=== PATIENT | male | born 1955 | race Caucasian/White ===

== ENCOUNTER 2017-06-13 11:26 | Observation (INO) | payer SELFPAY ==
[2017-06-13] VITALS (13 sets, daily range): BP systolic 155–218; BP diastolic 67–120; PULSE 60–100; RESP 17–20; TEMP 97.7–98.9; O2SAT 92–99
[~2017-06-13] VITALS: Ht 167.6 cm; Wt 80.0 kg
[~2017-06-13 11:26] MED LIST: ALBU1AER INH; ZITH250T PO
--- NOTE | 2017-06-13 11:42 | PD ---
HPI Chief Complaint: Respiratory Symptoms Time Seen by Provider: 11:34 Travel History International Travel<30 days: No Contact w/Intl Traveler<30days: No Traveled to known affect area: No History of Present Illness HPI The patient is a 62 year-old male who presents to the emergency department for shortness of breath and cough. The patient notes a history of bronchitis over the last 2 months, complains of shortness of breath, productive sputum producing yellow sputum, and generalized malaise. The patient denies any history of tobacco use or COPD. He denies ever been diagnosed with COPD and states he does not have an albuterol nebulizer or inhaler at home. Shortness of breath has been ongoing for 1 month, progressing, worse with exertion, and associated with wheezing. He denies any fever, chills, or sweats. He does have a history of hypertension, however, states he has not taken medications for hypertension in several years. He denies any recent travel, hospitalizations, surgeries, or history of pulmonary embolism/DVT. He denies any history congestive heart failure. Symptoms are moderate, possibly exacerbated by recent illnesses, and there are no current alleviating factors. PFSH Past Medical History Arthritis: No Asthma: No Autoimmune Disease: No Blood Disorders: No Anxiety: No Depression: Yes Heart Rhythm Problems: No Cancer: Yes (SKIN) Cardiovascular Problems: Yes High Cholesterol: Yes Chemotherapy: No Chest Pain: Yes Congestive Heart Failure: No COPD: No Cerebrovascular Accident: No Diabetes: Yes Diminished Hearing: No Endocrine: Yes Gastrointestinal Disorders: Yes GERD: Yes Glaucoma: No Genitourinary: No Headaches: No Hepatitis: No Hiatal Hernia: No Hypertension: Yes Kidney Stones: No Musculoskeletal: No Neurologic: No Psychiatric: Yes Respiratory: Yes Myocardial Infarction: No Radiation Therapy: No Renal Failure: No Seizures: No Sickle Cell Disease: No Sleep Apnea: No Thyroid Disease: No Ulcer: No Past Surgical History Abdominal Surgery: No AICD: No Body Medical Devices: N/A Cardiac Surgery: No Ear Surgery: No Endocrine Surgery: No Eye Surgery: No Genitourinary Surgery: No Gynecologic Surgery: No Oral Surgery: No Pacemaker: No Thoracic Surgery: No Other Surgery: Yes (BROKEN NOSE SURGERY X2) Social History Alcohol Use: Yes (3-4 TIMES PER WEEK (5-6 BEERS)) Tobacco Use: No Substance Use: No Allergies-Medications (Allergen,Severity, Reaction): Coded Allergies: No Known Allergies (Verified , 08/17/15) Reported Meds & Prescriptions Reported Meds & Active Scripts Active Proair Hfa (Albuterol Sulfate) 8.5 Gm Aero 2 Puff INH Q4-6H PRN * SHAKE WELL BEFORE USE * Review of Systems Except as stated in HPI: all other systems reviewed are Neg General / Constitutional: No: Fever HENT: No: Lightheadedness Cardiovascular: Positive: Dyspnea on exertion, No: Chest Pain or Discomfort Respiratory: Positive: Cough, Shortness of Breath, Wheezing Gastrointestinal: No: Nausea, Vomiting, Abdominal Pain Musculoskeletal: No: Edema Neurologic: No: Dizziness Physical Exam Narrative GENERAL: Awake, alert, pleasant 62-year-old male who appears his stated age and appears in mild respiratory distress. SKIN: Focused skin assessment warm/dry. HEAD: Atraumatic. Normocephalic. EYES: Pupils equal and round. No scleral icterus. No injection or drainage. ENT: No nasal bleeding or discharge. Mucous membranes pink and moist. NECK: Trachea midline. No JVD. CARDIOVASCULAR: Regular, tachycardic with a rate of 100. RESPIRATORY: Tachypnea with a respiratory rate of 22. Diminished breath sounds in the bases with a few scattered wheezes. GASTROINTESTINAL: Abdomen soft, non-tender, nondistended. MUSCULOSKELETAL: No obvious deformities. No clubbing. No cyanosis. No edema. Calves are soft bilaterally. NEUROLOGICAL: Awake and alert. No obvious cranial nerve deficits. Motor grossly within normal limits. Normal speech. PSYCHIATRIC: Appropriate mood and affect; insight and judgment normal. Data Data Last Documented VS Vital Signs Date Time Temp Pulse Resp B/P (MAP) Pulse Ox O2 Delivery O2 Flow Rate FiO2 06/13/17 12:27 87 18 188/90 (122) 97 Nasal Cannula 2.00 06/13/17 11:28 97.9 Orders Orders Complete Blood Count With Diff (06/13/17 11:37) Comprehensive Metabolic Panel (06/13/17 11:37) B-Type Natriuretic Peptide (06/13/17 11:37) Act Partial Throm Time (Ptt) (06/13/17 11:37) Prothrombin Time / Inr (Pt) (06/13/17 11:37) Magnesium (Mg) (06/13/17 11:37) Ckmb (Isoenzyme) Profile (06/13/17 11:37) Troponin I (06/13/17 11:37) Influenzae A/B Antigen (06/13/17 11:37) Iv Access Insert/Monitor (06/13/17 11:37) Electrocardiogram (06/13/17 11:37) Ecg Monitoring (06/13/17 11:37) Oximetry (06/13/17 11:37) Oxygen Administration (06/13/17 11:37) Chest, Single Ap (06/13/17 11:37) Sodium Chloride 0.9% Flush (Ns Flush) (06/13/17 11:45) Methylprednisolone So Succ Inj (Solumedr (06/13/17 11:45) Albuterol-Ipratropium Neb (Duoneb Neb) (06/13/17 11:45) Amlodipine (Norvasc) (06/13/17 11:45) Aspirin Chew (Aspirin Chew) (06/13/17 12:30) Furosemide Inj (Lasix Inj) (06/13/17 12:30) Enalaprilat Inj (Vasotec Inj) (06/13/17 12:45) (Nf) Albuterol Sulfate (Proair Hfa) (06/13/17 13:00) Labs Laboratory Tests Test 06/13/17 11:45 White Blood Count 4.3 TH/MM3 Red Blood Count 5.39 MIL/MM3 Hemoglobin 14.9 GM/DL Hematocrit 43.8 % Mean Corpuscular Volume 81.2 FL Mean Corpuscular Hemoglobin 27.7 PG Mean Corpuscular Hemoglobin Concent 34.1 % Red Cell Distribution Width 13.1 % Platelet Count 175 TH/MM3 Mean Platelet Volume 8.0 FL Neutrophils (%) (Auto) 74.8 % Lymphocytes (%) (Auto) 12.0 % Monocytes (%) (Auto) 9.3 % Eosinophils (%) (Auto) 3.2 % Basophils (%) (Auto) 0.7 % Neutrophils # (Auto) 3.2 TH/MM3 Lymphocytes # (Auto) 0.5 TH/MM3 Monocytes # (Auto) 0.4 TH/MM3 Eosinophils # (Auto) 0.1 TH/MM3 Basophils # (Auto) 0.0 TH/MM3 CBC Comment DIFF FINAL Differential Comment Prothrombin Time 10.0 SEC Prothromb Time International Ratio 1.0 RATIO Activated Partial Thromboplast Time 25.8 SEC Blood Urea Nitrogen 15 MG/DL Creatinine 0.98 MG/DL Random Glucose 358 MG/DL Total Protein 7.0 GM/DL Albumin 3.7 GM/DL Calcium Level 8.1 MG/DL Magnesium Level 2.3 MG/DL Alkaline Phosphatase 61 U/L Aspartate Amino Transf (AST/SGOT) 20 U/L Alanine Aminotransferase (ALT/SGPT) 31 U/L Total Bilirubin 0.7 MG/DL Sodium Level 137 MEQ/L Potassium Level 4.2 MEQ/L Chloride Level 102 MEQ/L Carbon Dioxide Level 28.9 MEQ/L Anion Gap 6 MEQ/L Estimat Glomerular Filtration Rate 78 ML/MIN Total Creatine Kinase 81 U/L Troponin I 0.02 NG/ML B-Type Natriuretic Peptide 538 PG/ML MDM Medical Decision Making Medical Screen Exam Complete: Yes Emergency Medical Condition: Yes Medical Record Reviewed: Yes Interpretation(s) EKG reveals normal sinus rhythm with a rate 87. Nonspecific T wave changes. Chest x-ray reveals slight CHF Last Impressions Chest X-Ray 06/13/17 1137 Signed Impressions: Service Date/Time: Tuesday, June 13, 2017 12:16 - CONCLUSION: Slight CHF. Laureen Sanchez MD Laboratory Tests Test 06/13/17 11:45 White Blood Count 4.3 TH/MM3 Red Blood Count 5.39 MIL/MM3 Hemoglobin 14.9 GM/DL Hematocrit 43.8 % Mean Corpuscular Volume 81.2 FL Mean Corpuscular Hemoglobin 27.7 PG Mean Corpuscular Hemoglobin Concent 34.1 % Red Cell Distribution Width 13.1 % Platelet Count 175 TH/MM3 Mean Platelet Volume 8.0 FL Neutrophils (%) (Auto) 74.8 % Lymphocytes (%) (Auto) 12.0 % Monocytes (%) (Auto) 9.3 % Eosinophils (%) (Auto) 3.2 % Basophils (%) (Auto) 0.7 % Neutrophils # (Auto) 3.2 TH/MM3 Lymphocytes # (Auto) 0.5 TH/MM3 Monocytes # (Auto) 0.4 TH/MM3 Eosinophils # (Auto) 0.1 TH/MM3 Basophils # (Auto) 0.0 TH/MM3 CBC Comment DIFF FINAL Differential Comment Prothrombin Time 10.0 SEC Prothromb Time International Ratio 1.0 RATIO Activated Partial Thromboplast Time 25.8 SEC Blood Urea Nitrogen 15 MG/DL Creatinine 0.98 MG/DL Random Glucose 358 MG/DL Total Protein 7.0 GM/DL Albumin 3.7 GM/DL Calcium Level 8.1 MG/DL Magnesium Level 2.3 MG/DL Alkaline Phosphatase 61 U/L Aspartate Amino Transf (AST/SGOT) 20 U/L Alanine Aminotransferase (ALT/SGPT) 31 U/L Total Bilirubin 0.7 MG/DL Sodium Level 137 MEQ/L Potassium Level 4.2 MEQ/L Chloride Level 102 MEQ/L Carbon Dioxide Level 28.9 MEQ/L Anion Gap 6 MEQ/L Estimat Glomerular Filtration Rate 78 ML/MIN Total Creatine Kinase 81 U/L Troponin I 0.02 NG/ML B-Type Natriuretic Peptide 538 PG/ML Differential Diagnosis Differential diagnosis includes bronchitis, CVA, pneumonia, pleural effusion, congestive heart failure, current myopathy, pulmonary embolism, acute coronary syndrome. Narrative Course IV was established, labs are drawn and sent, and the patient was placed on cardiac telemetry monitoring and continuous pulse oximetry monitoring. EKG was ordered and interpreted. Chest x-ray was obtained. The patient received Solu- Medrol 125 mg intravenously and DuoNeb's 2. Chest x-ray reveals slight CHF. BNP is greater than 500. The patient denies any history of congestive heart failure, patient does have significantly elevated blood pressure, may be related to hypertensive urgency/emergency versus new onset congestive heart failure. The patient was administered aspirin 162 mg orally and Lasix 40 mg intravenously. The patient appears to have new onset congestive heart failure, will benefit from 23 hour observation, echocardiogram, and starting a regimen of MANNY inhibitor, aspirin, and possibly diabetic medications. The on-call medical team was paged for admission. Physician Communication Physician Communication I discussed the patient with the residents who agreed with [address] Sampson. Diagnosis Primary Impression: New onset of congestive heart failure Additional Impression: Hypertensive urgency Admitting Information Admitting Physician Requests: Admit Condition: Stable Jaden Ibarra MD Jun 13, 2017 11:42
[2017-06-13] MEDS ORDERED: SODIUM CHLORIDE 0.9% FLUSH 10 ML FLUSH IVF PRN (11:45)
[2017-06-13] MEDS ORDERED: methylPREDNISolone SOD SUCC 125 MG/2 ML VIAL IV PUSH ONE (11:45)
[2017-06-13 11:57] LABS: AUTOMATED NEUTROPHIL # 3.2 TH/MM3 (1.8-7.7); BASOPHIL % 0.7 % (0.0-2.0); EOSINOPHIL # 0.1 TH/MM3 (0-0.4); EOSINOPHIL % 3.2 % (0.0-4.0); HEMATOCRIT 43.8 % (39.0-51.0); HEMOGLOBIN 14.9 GM/DL (13.0-17.0); LYMPHOCYTE # 0.5 TH/MM3 (1.0-4.8); MEAN CELL VOLUME 81.2 FL (80.0-100.0); MEAN CORPUSCULAR HEMOGLOBIN 27.7 PG (27.0-34.0); MEAN CORPUSCULAR HGB CONC 34.1 % (32.0-36.0); MONO % 9.3 % (0.0-8.0); MONOCYTE # 0.4 TH/MM3 (0-0.9); NEUT % 74.8 % (16.0-70.0); PLATELET COUNT 175 TH/MM3 (150-450); RED BLOOD COUNT 5.39 MIL/MM3 (4.50-5.90); RED CELL DISTRIBUTION WIDTH 13.1 % (11.6-17.2); WHITE BLOOD COUNT 4.3 TH/MM3 (4.0-11.0)
[2017-06-13] MEDS: RESP: ALBUTEROL 2.5 MG/IPRATROPIUM 0.5 MG NEB (SCH) INH ×2 (12:00→12:04)
--- NOTE | 2017-06-13 12:26 | RADRPT ---
EXAM DATE/TIME: 06/13/2017 12:16 [facility] COMPARISON: No previous studies available for comparison. INDICATIONS : Short of Breath MEDICAL HISTORY : None. SURGICAL HISTORY : None. ENCOUNTER: Initial ACUITY: 1 day PAIN SCORE: 0/10 LOCATION: Bilateral chest FINDINGS: There is slight cardiomegaly and perivascular pulmonary edema. Focal consolidation is not seen. CONCLUSION: Slight CHF. Laureen Sanchez MD on June 13, 2017 at 12:22 Board Certified Radiologist. This report was verified electronically.
[2017-06-13] MEDS ORDERED: ASPIRIN 81 MG CHEW TAB CHEW ONE (12:30)
[2017-06-13] MEDS ORDERED: FUROSEMIDE 40 MG/4 ML VIAL IV PUSH ONE ×2 (12:30→20:00)
[2017-06-13 12:32] LABS: ALBUMIN 3.7 GM/DL (3.4-5.0); ALKALINE PHOSPHATASE 61 U/L (45-117); ALT (GPT) 31 U/L (12-78); AST (GOT) 20 U/L (15-37); BICARBONATE 28.9 MEQ/L (21.0-32.0); BLOOD UREA NITROGEN 15 MG/DL (7-18); CALCIUM 8.1 MG/DL (8.5-10.1); CHLORIDE 102 MEQ/L (98-107); CREATININE 0.98 MG/DL (0.60-1.30); GLOMERULAR FILTRATION RATE 78 ML/MIN (>89); GLUCOSE,RANDOM 358 MG/DL (74-106); MAGNESIUM 2.3 MG/DL (1.5-2.5); SODIUM (NA) 137 MEQ/L (136-145); TOTAL BILIRUBIN ADULT 0.7 MG/DL (0.2-1.0); TROPONIN I 0.02 NG/ML (0.02-0.05)
[2017-06-13] MEDS ORDERED: ENALAPRILAT 2.5 MG/2 ML VIAL IV PUSH ONE (12:45)
[2017-06-13] MEDS ORDERED: ALBUAER3 INH (13:08)
--- NOTE | 2017-06-13 13:17 | HHI.HP ---
HPI Service Family Medicine Primary Care Physician No Primary Care Physician Admission Diagnosis new onset congestive heart failure, hypertensive urgency Diagnoses: Chief Complaint: night cough and sob International Travel<30 Days: No Contact w/Intl Traveler<30days: No Known Affected Area: No History of Present Illness Mr Heart is a 62YO male w/PMHx of HTN, DM type 2, GERD and recurrent bronchitis who presents with 1 month of nighttime cough/bronchitis that interrupts his sleep and occasional CP. Pt has not seen a PCP since 1995 and takes no medications. He feels like something is blocking his breathing when he tries to cough and feels like he is wheezing. He requires 2-3 pillows to prop up at night to sleep but does not awake gasping for air. He has been told he snores, but does not think he has sleep apnea. He states he has had similar sxs each year for past several years about this time that has been dx as bronchitis. 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 Indicates he has occasional CP that is substernal and dull without radiation. He is not having active CP on interview. Reports it has been years since he was on meds for HTN, and possibly took lisinopril at the time but can't recall. He gets SOB with exertion. Some days he can walk 20 yards and be out of breath, but other days can go farther. He takes the elevator in bldgs with more than one floor. He takes no medication for his DM type 2 but believes it is controlled. Denies N/V/D, abdominal pain, DVT pain. (Hayden Barrera MD R1) Review of Systems Constitutional: COMPLAINS OF: Fatigue, Weight gain, DENIES: Fever, Chills, Dizziness, Night Sweats Endocrine: COMPLAINS OF: Polyuria, DENIES: Polydipsia Eyes: DENIES: Blurred vision, Diplopia, Vision loss Ears, nose, mouth, throat: COMPLAINS OF: Throat pain, DENIES: Hearing loss, Nasal discharge, Oral lesions, Hoarseness Respiratory: COMPLAINS OF: Cough, Snoring, Wheezing, Sputum production (clear white then light yellow), Shortness of breath, DENIES: Apneas, Hemoptysis Cardiovascular: COMPLAINS OF: Chest pain (once in awhile - none right now), Dyspnea on Exertion, Orthopnea (2-3 pillowa), DENIES: Palpitations, Syncope, PND , Lower Extremity Edema Gastrointestinal: DENIES: Abdominal pain, Black stools, Bloody stools, Constipation, Diarrhea, Nausea Genitourinary: COMPLAINS OF: Urinary frequency, Nocturia (3x a night), DENIES: Hematuria Musculoskeletal: DENIES: Joint pain, Muscle aches Integumentary: DENIES: Pruritus, Rash Hematologic/lymphatic: DENIES: Lymphadenopathy Immunologic/allergic: DENIES: Urticaria Neurologic: DENIES: Headache, Paresthesias, Seizures Psychiatric: DENIES: Anxiety, Depression (Hayden Barrera MD R1) Past Family Social History Past Medical History Bronchitis DM type 2 - hasn't taken anything in awhile HTN melanoma on back 1995 Past Surgical History nose surgery - septal deviation Reported Medications Reported Meds & Active Scripts Active Reported Proair Hfa 8.5 GM Inh (Albuterol Sulfate) 90 Mcg/Act Aer 2 Puff INH Q4-6H PRN 108 mcg/actuation (Hayden Barrera MD R1) Allergies: Coded Allergies: No Known Allergies (Verified Allergy, Severe, 08/17/15) Active Ordered Medications Current Medications Medications (Trade) Dose Ordered Sig/Anjana Route Start Time Stop Time Status Last Admin (NS Flush) 2 ml UNSCH PRN IVF 06/13/17 11:45 Non-Formulary Medication 2 puff Q4-6H PRN INH 06/13/17 13:00 UNV Family History Mother - in MVA Father - alive, poor eyesight Social History Tobacco - never smoker EtOH - 4-pack beer per night Drugs - 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 Single and lives alone with his 2 cats (Hayden Barrera MD R1) Physical Exam Vital Signs Vital Signs Date Time Temp Pulse Resp B/P (MAP) Pulse Ox O2 Delivery O2 Flow Rate FiO2 06/13/17 12:27 87 18 188/90 (122) 97 Nasal Cannula 2.00 06/13/17 11:45 96 Nasal Cannula 2.00 06/13/17 11:41 93 Nasal Cannula 2.00 06/13/17 11:41 18 94 Nasal Cannula 2.00 06/13/17 11:39 95 18 211/111 (144) 95 Nasal Cannula 2.00 218/120 (152) 06/13/17 11:36 99 24 96 Room Air 06/13/17 11:28 97.9 100 20 168/94 (118 92 Physical Exam GENERAL: This is a well-nourished, well-developed patient, in no apparent distress until he has a coughing fit. SKIN: No rashes or ecchymoses. Cool and dry. One small scab on each great toe. 3cm x 3cm irregular hyperpigmented patch anterior to right tragus. HEAD: Atraumatic. Normocephalic. EYES: Pupils equal round and reactive. Extraocular motions intact. No scleral icterus. No injection or drainage. ENT: Nose without bleeding or drainage. Throat without erythema, tonsillar hypertrophy or exudate. Uvula midline. Airway patent. MMM. Poor dentition. NECK: Trachea midline. Mild JVD present. Possible mild submandibular lymphadenopathy. Supple, nontender, no meningeal signs. CARDIOVASCULAR: Regular rate and rhythm without murmur, gallop, or rub. RESPIRATORY: Mild wheezing vs upper airway transmitted sounds in upper lungs; moves air poorly and sounds tight in lower lung churchill; no rales or rhonchi. GASTROINTESTINAL: Abdomen soft, non-tender, nondistended. No hepato-splenomegaly , or palpable masses. No guarding. MUSCULOSKELETAL: Extremities without clubbing, cyanosis, or edema. No joint tenderness, effusion, or edema noted. No calf tenderness. NEUROLOGICAL: Awake and alert. Cranial nerves II through XII intact. Motor and sensory grossly within normal limits. Five out of 5 muscle strength in all muscle groups. Normal speech. Laboratory Laboratory Tests Test 06/13/17 11:45 White Blood Count 4.3 Red Blood Count 5.39 Hemoglobin 14.9 Hematocrit 43.8 Mean Corpuscular Volume 81.2 Mean Corpuscular Hemoglobin 27.7 Mean Corpuscular Hemoglobin Concent 34.1 Red Cell Distribution Width 13.1 Platelet Count 175 Mean Platelet Volume 8.0 Neutrophils (%) (Auto) 74.8 Lymphocytes (%) (Auto) 12.0 Monocytes (%) (Auto) 9.3 Eosinophils (%) (Auto) 3.2 Basophils (%) (Auto) 0.7 Neutrophils # (Auto) 3.2 Lymphocytes # (Auto) 0.5 Monocytes # (Auto) 0.4 Eosinophils # (Auto) 0.1 Basophils # (Auto) 0.0 CBC Comment DIFF FINAL Differential Comment Prothrombin Time 10.0 Prothromb Time International Ratio 1.0 Activated Partial Thromboplast Time 25.8 Blood Urea Nitrogen 15 Creatinine 0.98 Random Glucose 358 Total Protein 7.0 Albumin 3.7 Calcium Level 8.1 Magnesium Level 2.3 Alkaline Phosphatase 61 Aspartate Amino Transf (AST/SGOT) 20 Alanine Aminotransferase (ALT/SGPT) 31 Total Bilirubin 0.7 Sodium Level 137 Potassium Level 4.2 Chloride Level 102 Carbon Dioxide Level 28.9 Anion Gap 6 Estimat Glomerular Filtration Rate 78 Total Creatine Kinase 81 Troponin I 0.02 B-Type Natriuretic Peptide 538 Date/Time Source Procedure Growth Status 06/13/17 11:45 Nasal Aspirate Influenza Types A,B Antigen (FENG) - Final NEGATIVE FOR FLU A AND B ANTIGEN.... Complete (Hayden Barrera MD R1) Result Diagram: 06/13/17 1145 06/13/17 1145 Imaging Last Impressions Chest X-Ray 06/13/17 1137 Signed Impressions: Service Date/Time: Tuesday, June 13, 2017 12:16 - CONCLUSION: Slight CHF. K. Ben Sanchez MD Course ECHO w/Doppler 06/13 - CONCLUSIONS: Mildly dilated left ventricle. Mild concentric left ventricular hypertrophy. The left ventricular systolic function is low normal with an estimated ejection fraction in the range of 50%. The left atrial size is mildly dilated. Mitral annular calcification is present. There is trace tricuspid valve regurgitation. Mild pulmonary valve regurgitation. There is a small pericardial effusion present, no hemodynamic compromise. (Hayden Barrera MD R1) Septic Shock Reassessment Septic shock perfusion: reassessment completed (Hayden Barrera MD R1) Caprini VTE Risk Assessment Caprini VTE Risk Assessment: No/Low Risk (score <= 1) Caprini Risk Assessment Model Point Value = 1 Point Value = 2 Point Value = 3 Point Value = 5 Age 41-60 Minor surgery BMI > 25 kg/m2 Swollen legs Varicose veins or History of unexplained or recurrent spontaneous Oral contraceptives or hormone replacement Sepsis (< 1 month) Serious lung disease, including pneumonia (< 1 month) Abnormal pulmonary function Acute myocardial infarction Congestive heart failure (< 1 month) History of inflammatory bowel disease Medical patient at bed rest Age 61-74 Arthroscopic surgery Major open surgery (> 45 min) Laparoscopic surgery (> 45 min) Malignancy Confined to bed (> 72 hours) Immobilizing plaster cast Central venous access Age >= 75 History of VTE Family history of VTE Factor V Leiden Prothrombin [id number] Lupus anticoagulant Anticardiolipin antibodies Elevated serum homocysteine Heparin-induced thrombocytopenia Other congenital or acquired thrombophilia Stroke (< 1 month) Elective arthroplasty Hip, pelvis, or leg fracture Acute spinal cord injury (< 1 month) Prophylaxis Regimen Total Risk Factor Score Risk Level Prophylaxis Regimen 0-1 Low Early ambulation 2 Moderate Order ONE of the following: *Sequential Compression Device (SCD) *Heparin 5000 units SQ BID 3-4 Higher Order ONE of the following medications: *Heparin 5000 units SQ TID *Enoxaparin/Lovenox 40 mg SQ daily (WT < 150 kg, CrCl > 30 mL/min) *Enoxaparin/Lovenox 30 mg SQ daily (WT < 150 kg, CrCl > 10-29 mL/min) *Enoxaparin/Lovenox 30 mg SQ BID (WT < 150 kg, CrCl > 30 mL/min) AND/OR *Sequential Compression Device (SCD) 5 or more Highest Order ONE of the following medications: *Heparin 5000 units SQ TID (Preferred with Epidurals) *Enoxaparin/Lovenox 40 mg SQ daily (WT < 150 kg, CrCl > 30 mL/min) *Enoxaparin/Lovenox 30 mg SQ daily (WT < 150 kg, CrCl > 10-29 mL/min) *Enoxaparin/Lovenox 30 mg SQ BID (WT < 150 kg, CrCl > 30 mL/min) AND *Sequential Compression Device (SCD) (Hayden Barrera MD R1) Assessment and Plan Assessment and Plan 62YO male w/PMHx of HTN, DM type 2, and recurrent bronchitis who presents today with HTN urgency, cough, sputum production and bronchitis x1 month, intermittent chest pain and wheezing. CXR shows mild CHF and BNP 538 in absence of Troponin (<0.02). This may be first onset CHF for the pt. He drinks 4 beers per night. Consider new onset CHF exacerbation vs chemical pneumonitis from occupational exposure vs viral bronchitis causing CHF exacerbation. Current 10 year ASCVD risk: 18.8% --> can be lowered to 9.3% is started on statin, BP medication, and aspirin therapy 1. CHF - BNP 538; normal troponin x2; CXR c/w mild CHF; TSH wnl; uric acid 6.0 -Received Lasix 40mg IV and Vasotec 2.5mg IV in ED -Lasix 40mg daily -Start Lisinopril 20mg BID -Start amlodipine 10mg daily -Start atorvastatin 20mg daily -Vasotec 2.5mg IV q6h -ECHO low normal with results as above -Strict I/Os -Na restriction 2gm/day -Heart Healthy diet -Fluid restriction -BB contraindicated for now -Renin pending 2. HTN urgency -Vasotec, amlodipine and Lasix in ED -Cardizem 10mg bolus reduced BP to 163/72 -Vasotec 2.5mg IV push PRN for SBP>180 and/or DBP<100 -Start lisinopril 20mg BID -Amlodipine 10mg daily -Start atorvastatin 20mg daily 3. Intermittent CP -ACS r/o orders -EKG nsr w/poss left atrial enlargement w/non-specific T-wave abnormality; will trend 2 more -Troponin <0.02 x2; trend 1 additional -Total CK -BNP 538 -ASA 162mg PO in ED -Start ASA 81mg daily 4. Cough/Dyspnea/Bronchitis -Tessalon perles -Resp panel pending -Influenza a/b neg -Duonebs 2.5ml q6h -Albuterol nebs q6h PRN -Guaifenisen 600mg tab BID -Sputum cx and GS 5. Alcohol abuse - Lipase wnl -CIWA -Thiamine -Multivitamin 6. DM type 2 - not on medication but blood sugar on admit 358 -Low Novolog SSI -A1C pending -Lipid panel with elevated Trig 201 and HDL 62.1, otherwise wnl 7. FEN/GI/PPx Fluids: PO fluids Electrolytes: wnl; will monitor daily and replete as necessary Nutrition: heart healthy diet; NA restriction to 2grams, fluid restriction to 2L /day GI: protonix 40mg daily PPx: Heparin 5000units q8h Tylenol 650mg q6h for fever >100.4 PT to eval and tx CM to assess for needs Code Status FULL CODE Twin brother Lenny would be his HCPOA [phone] Discussed Condition With Fatimah Sampson and Nighat (Hayden Barrera MD R1) Problem List: (1) FEN/GI/PPx (2) GERD (gastroesophageal reflux disease) ICD Codes: K21.9 - Gastro-esophageal reflux disease without esophagitis (3) Diabetes mellitus type 2 in nonobese ICD Codes: E11.9 - Type 2 diabetes mellitus without complications (4) Hypertensive urgency ICD Codes: I16.0 - Hypertensive urgency Status: Acute (5) New onset of congestive heart failure ICD Codes: I50.9 - Heart failure, unspecified Status: Acute (Hayden Barrera MD R1) Physician Certification 2 Midnight Certification Type: Admission for Inpatient Services Order for Inpatient Services The services are ordered in accordance with Medicare regulations or non- Medicare payer requirements, as applicable. In the case of services not specified as inpatient-only, they are appropriately provided as inpatient services in accordance with the 2-midnight benchmark. Estimated LOS (days): 2 days is the estimated time the patient will need to remain in the hospital, assuming treatment plan goals are met and no additional complications. Post-Hospital Plan: Home (Hayden Barrera MD R1) Hayden Barrera MD R1 Jun 13, 2017 13:17 Tanvi Sampson MD Jun 14, 2017 14:23
[2017-06-13] MEDS ORDERED: SODIUM CHLORIDE 0.9% FLUSH 10 ML FLUSH IV FLUSH PRN (13:30)
[2017-06-13] MEDS ORDERED: ALBUTEROL SULFATE 90 MCG/ACT HFA 8 GM INHALER INH PRN (13:45)
[2017-06-13] MEDS ORDERED: ACETAMINOPHEN 325 MG TAB PO PRN (14:00)
[2017-06-13] MEDS ORDERED: GLUCAGON 1 MG/ML VIAL OTHER PRN (14:00)
[2017-06-13] MEDS ORDERED: ENALAPRILAT 1.25 MG/ML VIAL IV PUSH PRN (14:00)
[2017-06-13] MEDS ORDERED: FLUMAZENIL 0.5 MG/5 ML VIAL IV PUSH PRN (14:00)
[2017-06-13] MEDS ORDERED: DILTIAZEM HCL 25 MG/5 ML VIAL IV ONE (14:00)
[2017-06-13] MEDS ORDERED: ONDANSETRON HCL 4 MG/2 ML VIAL IVP PRN (14:00)
[2017-06-13] MEDS ORDERED: DEXTROSE 50% IN WATER 50 ML VIAL(D50) IV PUSH PRN (14:00)
[2017-06-13] MEDS ORDERED: MAGNESIUM HYDROXIDE SUSP 30 ML CUP PO PRN (14:00)
[2017-06-13] MEDS ORDERED: cloNIDine HCL 0.2 MG TAB PO ONE (14:00)
[2017-06-13] MEDS ORDERED: LORazepam 2 MG TAB PO PRN (14:00)
[2017-06-13] MEDS ORDERED: LORazepam 1 MG TAB PO PRN (14:00)
[2017-06-13] MEDS ORDERED: LORazepam 2 MG/ML VIAL IV PUSH PRN ×4 (14:00)
[2017-06-13] MEDS: HEPARIN SODIUM - SQ 10,000 UNITS/ML VIAL SQ SCH ×2 (14:00→21:28)
[2017-06-13 14:42] LABS: CHOLESTEROL/ HDL RATIO 3.04 RATIO; HDL CHOLESTEROL 62.1 MG/DL (40.0-60.0)
[2017-06-13] MEDS ORDERED: BENZONATATE 100 MG CAP PO PRN (14:45)
[2017-06-13 15:54] LABS: BILIRUBIN, URINE NEG (NEG); BLOOD, URINE NEG (NEG); GLUCOSE,URINE 300 mg/dL (NEG); HYALINE CAST, URINE 4 /lpf (RARE); KETONE, URINE NEG (NEG); MUCUS URINE FEW /lpf (OCC); NITRITE,URINE NEG (NEG); PH, URINE 5.5 (5.0-8.5); URINE COLOR YELLOW (YELLW/STRAW); URINE LEUKOCYTE ESTERASE NEG (NEG)
[2017-06-13] MEDS: THIAMINE INJ 100 MG in SODIUM CHLORIDE 0.9% INJ 100 ML IV SCH (16:17)
[2017-06-13] MEDS: MULTIVITAMIN TAB PO SCH (16:17)
--- NOTE | 2017-06-13 16:32 | ECHRPT ---
Indication: NEW ONSET CHF CONCLUSIONS Mildly dilated left ventricle. Mild concentric left ventricular hypertrophy. The left ventricular systolic function is low normal with an estimated ejection fraction in the rang e of 50%. The left atrial size is mildly dilated. Mitral annular calcification is present. There is trace tricuspid valve regurgitation. Mild pulmonary valve regurgitation. There is a small pericardial effusion present, no hemodynamic compromise. BP: / HR: Rhythm: MEASUREMENTS (Male / Female) Normal Values Technical Quality:Good 2D ECHO LV Diastolic Diameter PLAX 5.0 cm 4.2 - 5.9 / 3.9 - 5.3 cm LV Systolic Diameter PLAX 4.1 cm IVS Diastolic Thickness 1.3 cm 0.6 - 1.0 / 0.6 - 0.9 cm LVPW Diastolic Thickness 1.0 cm 0.6 - 1.0 / 0.6 - 0.9 cm LV Relative Wall Thickness 0.5 LA Systolic Diameter LX 4.6 cm 3.0 - 4.0 / 2.7 - 3.8 cm M-MODE Aortic Root Diameter MM 3.3 cm AV Cusp Separation MM 2.3 cm DOPPLER Mitral E Point Velocity 123.0 cm/s Mitral A Point Velocity 54.9 cm/s Mitral E to A Ratio 2.2 TR Peak Velocity 278.0 cm/s TR Peak Gradient 30.9 mmHg FINDINGS LEFT VENTRICLE Mildly dilated left ventricle. Mild concentric left ventricular hypertrophy. The left ventricular systolic function is low normal with an estimated ejection fraction in the rang e of 50%. RIGHT VENTRICLE Normal right ventricular size and systolic function. LEFT ATRIUM The left atrial size is mildly dilated. RIGHT ATRIUM The right atrial size is normal. ATRIAL SEPTUM Normal atrial septal thickness without atrial level shunting by limited color doppler interrogation. AORTA The aortic root and proximal ascending aorta are normal in size on limited imaging. MITRAL VALVE Mitral annular calcification is present. AORTIC VALVE Trileaflet aortic valve. No aortic valve stenosis or regurgitation. TRICUSPID VALVE There is trace tricuspid valve regurgitation. PULMONARY VALVE Mild pulmonary valve regurgitation. VESSELS The inferior vena cava is normal in size. PERICARDIUM There is a small pericardial effusion present. Rafael Connelly MD (Electronically Signed) Final Date:13 June 2017 16:31
[2017-06-13] MEDS: INSULIN ASPART SUPPLEMENTAL SCALE SQ SCH ×2 (17:12→21:30)
[2017-06-13 18:44] LABS: LIPASE 159 U/L (73-393)
[2017-06-13 18:53] LABS: TROPONIN I LESS THAN 0.02 NG/ML (0.02-0.05)
[2017-06-13] MEDS ORDERED: ENALAPRILAT 2.5 MG/2 ML VIAL IV PUSH PRN (19:00)
[2017-06-13] MEDS: RESP: ALBUTEROL 2.5 MG/IPRATROPIUM 0.5 MG NEB (SCH) NEB (20:00)
[2017-06-13] MEDS ORDERED: ATORVASTATIN 20 MG TAB PO SCH (21:00)
[2017-06-13] MEDS: LISINOPRIL 20 MG TAB PO SCH (21:29)
[2017-06-13] MEDS: guaiFENesin E.R. 600 MG TAB PO SCH (21:29)
[2017-06-13] MEDS: SODIUM CHLORIDE 0.9% FLUSH 10 ML FLUSH IV FLUSH SCH (21:29)
[2017-06-13] MEDS: DOCUSATE SODIUM 50 MG/SENNA 8.6 MG TAB PO SCH (21:30)
[2017-06-14] VITALS (7 sets, daily range): BP systolic 134–173; BP diastolic 68–82; PULSE 78–91; RESP 16–17; TEMP 98–98.2; O2SAT 93–99
[2017-06-14] MEDS ORDERED: ENALAPRILAT 2.5 MG/2 ML VIAL IV PUSH PRN (01:00)
[2017-06-14 06:23] LABS: ALBUMIN 3.5 GM/DL (3.4-5.0); ALKALINE PHOSPHATASE 51 U/L (45-117); ALT (GPT) 25 U/L (12-78); AST (GOT) 8 U/L (15-37); BICARBONATE 27.7 MEQ/L (21.0-32.0); BLOOD UREA NITROGEN 27 MG/DL (7-18); CALCIUM 8.3 MG/DL (8.5-10.1); CHLORIDE 102 MEQ/L (98-107); CREATININE 0.98 MG/DL (0.60-1.30); GLOMERULAR FILTRATION RATE 78 ML/MIN (>89); GLUCOSE,RANDOM 228 MG/DL (74-106); SODIUM (NA) 139 MEQ/L (136-145); TOTAL BILIRUBIN ADULT 0.8 MG/DL (0.2-1.0); TOTAL PROTEIN 6.7 GM/DL (6.4-8.2)
[2017-06-14] MEDS: RESP: ALBUTEROL 2.5 MG/IPRATROPIUM 0.5 MG NEB (SCH) NEB ×2 (07:31→11:46)
[2017-06-14] MEDS: HEPARIN SODIUM - SQ 10,000 UNITS/ML VIAL SQ SCH ×2 (07:45→14:00)
[2017-06-14] MEDS: DOCUSATE SODIUM 50 MG/SENNA 8.6 MG TAB PO SCH (08:12)
[2017-06-14] MEDS: guaiFENesin E.R. 600 MG TAB PO SCH (08:12)
[2017-06-14] MEDS: MULTIVITAMIN TAB PO SCH (08:12)
[2017-06-14] MEDS: LISINOPRIL 20 MG TAB PO SCH (08:12)
[2017-06-14] MEDS: SODIUM CHLORIDE 0.9% FLUSH 10 ML FLUSH IV FLUSH SCH (08:13)
[2017-06-14] MEDS ORDERED: FUROSEMIDE 40 MG TAB PO SCH (09:00)
[2017-06-14] MEDS ORDERED: LISINOPRIL 20 MG TAB PO SCH (09:00)
[2017-06-14] MEDS ORDERED: ASPIRIN 81 MG CHEW TAB CHEW SCH (09:00)
[2017-06-14] MEDS ORDERED: FUROSEMIDE 40 MG/4 ML VIAL IV PUSH SCH (09:00)
[2017-06-14] MEDS: THIAMINE INJ 100 MG in SODIUM CHLORIDE 0.9% INJ 100 ML IV SCH (09:07)
[2017-06-14] MEDS: INSULIN ASPART SUPPLEMENTAL SCALE SQ SCH ×2 (09:07→12:55)
--- NOTE | 2017-06-14 09:29 | RADRPT ---
EXAM DATE/TIME: 06/14/2017 09:13 [facility] COMPARISON: CHEST SINGLE AP, June 13, 2017, 12:16. INDICATIONS : Short of Breath MEDICAL HISTORY : None. SURGICAL HISTORY : None. ENCOUNTER: Subsequent ACUITY: 2 days PAIN SCORE: 0/10 LOCATION: Bilateral chest FINDINGS: Mild posterior right lower lobe airspace disease. Mild interstitial prominence. Cardiomediastinal con tours with in normal limits. Bony thorax is intact. CONCLUSION: 1. Positive fluid balance. 2. Right posterior lower lobe airspace disease which may reflect atelectasis. However, developing pne umonia cannot be excluded in the appropriate clinical setting. Drew Hill MD on June 14, 2017 at 9:24 Board Certified Radiologist. This report was verified electronically.
--- NOTE | 2017-06-14 09:52 | HHI.FPPN ---
Subjective Subjective Patient seen and examined with the resident team this am. Case reviewed and discussed Please refer to resident H&P for further details regarding HPI, ROS, PMH, SurgHx , Fh and SocHx In summary, patient is a 62yoM who has not seen a physician in several decades presenting with progressive shortness of breath Patient reports he has not been able to sleep without being propped up. He notes CAREY, intermittent chest pain, though not associated with exertion He previously was on anti-hypertensive meds, though nothing now. BP 218/120 in the ED. Diuresed ~1300ml overnight. This am, patient reports he feels great. He wants to go home. He is motivated to take his medications and follow-up [facility] Objective Objective Last Impressions Chest X-Ray 06/14/17 0000 Signed Impressions: Service Date/Time: Wednesday, June 14, 2017 09:13 - CONCLUSION: 1. Positive fluid balance. 2. Right posterior lower lobe airspace disease which may reflect atelectasis. However, developing pneumonia cannot be excluded in the appropriate clinical setting. Drew Hill MD Laboratory Tests - Abnormals Test 06/13/17 11:45 06/13/17 15:32 06/13/17 18:00 06/14/17 00:45 Neutrophils (%) (Auto) 74.8 % Monocytes (%) (Auto) 9.3 % Lymphocytes # (Auto) 0.5 TH/MM3 Random Glucose 358 MG/DL Calcium Level 8.1 MG/DL Estimat Glomerular Filtration Rate 78 ML/MIN B-Type Natriuretic Peptide 538 PG/ML Triglycerides Level 201 MG/DL HDL Cholesterol 62.1 MG/DL Urine Glucose (UA) 300 mg/dL Urine Mucus FEW /lpf Urine Random Creatinine LESS THAN 13 MG/DL Urine Microalbumin/Creatinine Ratio 1300 MG/G CRE Troponin I LESS THAN 0.02 NG/ML LESS THAN 0.02 NG/ML Test 06/14/17 04:26 Blood Urea Nitrogen 27 MG/DL Random Glucose 228 MG/DL Calcium Level 8.3 MG/DL Aspartate Amino Transf (AST/SGOT) 8 U/L Estimat Glomerular Filtration Rate 78 ML/MIN B-Type Natriuretic Peptide 507 PG/ML Vital Signs 06/13/17 06/13/17 06/13/17 06/13/17 11:28 11:36 11:39 11:41 Temp 97.9 Pulse 100 99 95 Resp 20 18 18 B/P (MAP) 168/94 (118) 211/111 (144) 218/120 (152) Pulse Ox 92 96 95 94 O2 Delivery Room Air Nasal Cannula Nasal Cannula O2 Flow Rate 2.00 2.00 06/13/17 06/13/17 06/13/17 06/13/17 11:41 11:45 12:27 14:01 Pulse 87 82 Resp 18 18 B/P (MAP) 188/90 (122) 163/72 (102) Pulse Ox 93 96 97 95 O2 Delivery Nasal Cannula Nasal Cannula Nasal Cannula Nasal Cannula O2 Flow Rate 2.00 2.00 2.00 2.00 06/13/17 06/13/17 06/13/17 06/13/17 14:45 15:39 16:50 19:20 Temp 97.7 98.5 Pulse 83 92 89 89 Resp 18 17 B/P (MAP) 172/84 (113) 166/79 (108) 171/80 (110) Pulse Ox 93 96 06/13/17 06/13/17 06/13/17 06/14/17 19:58 20:00 23:08 00:00 Temp 98.9 Pulse 84 85 84 Resp 17 B/P (MAP) 155/67 (96) Pulse Ox 97 93 06/14/17 06/14/17 06/14/17 06/14/17 03:01 04:00 07:12 07:36 Temp 98.0 98.1 Pulse 81 78 83 80 Resp 17 16 B/P (MAP) 134/68 (90) 162/82 (108) Pulse Ox 93 95 Physical exam GENERAL: wdwn male, sitting up in bed, NAD SKIN: Warm and dry. No rashes, lesions HEAD: Normocephalic. AT EYES: No scleral icterus. No injection or drainage. ENT: OP clear. MMM. NECK: Supple, trachea midline. No JVD or lymphadenopathy. CARDIOVASCULAR: Regular rate and rhythm without audible murmurs, gallops, or rubs. RESPIRATORY: Breath sounds equal and clear to auscultation bilaterally. No accessory muscle use. GASTROINTESTINAL: Abdomen soft, non-tender, nondistended. normal active BS. No rebound, guarding. MUSCULOSKELETAL: No cyanosis, or edema. No calf tenderness. BACK: Nontender without obvious deformity. No CVA tenderness. NEURO: Awake and alert. Normal speech. CN grossly intact. Assessment Assessment 62yoM with: New onset CHF, systolic, decompensated Hypertensive Emergency Medical Non-adherence Diabetes, uncontrolled PLAN PLAN Aggressive Diuresis BP control Strict Is/Os 2D echo CM consult for medications, follow-up assistance Counseled extensively regarding alcohol cessation and lifestyle modifications Daily weights Fluid restrict r/o ACS Patient seen and examined. Case reviewed and discussed Agree with plan of care as discussed with me and documented in the resident note. Tanvi Sampson MD Jun 14, 2017 09:52
--- NOTE | 2017-06-14 10:21 | HHI.DCPOC ---
Discharge Care Plan Diagnosis: (1) Diabetes mellitus type 2 in nonobese (2) GERD (gastroesophageal reflux disease) (3) New onset of congestive heart failure (4) Hypertensive emergency Goals to Promote Your Health * To prevent worsening of your condition and complications * To maintain your health at the optimal level Directions to Meet Your Goals Take your medications as prescribed Follow your dietary instruction Follow activity as directed Keep your appointments as scheduled Take your immunizations and boosters as scheduled If your symptoms worsen call your PCP, if no PCP go to Urgent Care Center or Emergency Room Smoking is Dangerous to Your Health. Avoid second hand smoke Call the 24-hour hour crisis hotline for domestic abuse at Trav Trevino MD R3 Jun 14, 2017 10:21 Tanvi Sampson MD Jun 14, 2017 14:22
[2017-06-14] MEDS ORDERED: FURO1TAB60 PO (12:23)
[2017-06-14] MEDS ORDERED: POTA-163 PO (12:23)
[2017-06-14] MEDS ORDERED: ASPI81 CHEW (12:23)
[2017-06-14] MEDS ORDERED: METO25TA3 PO (12:23)
[2017-06-14] MEDS ORDERED: LISI-515 PO (12:23)
[2017-06-14] MEDS ORDERED: SIMV20TA PO (12:23)
[2017-06-14] MEDS ORDERED: AMLO10 PO (12:23)
[2017-06-14 16:07] LABS: HEMOGLOBIN A1C 8.1 % (4.3-6.0)
--- NOTE | 2017-06-14 19:36 | EKG ---
Date Performed: 06/13/2017 Time Performed: 11:46:01 PTAGE: 62 years EKG: Sinus rhythm POSSIBLE LEFT ATRIAL ENLARGEMENT NONSPECIFIC T-WAVE ABNORMALITY ABNORMAL ECG PREVIOUS TRACING : 10/03/2004 23.54 Since previous tracing, no significant change noted DOCTOR: Salome Walton Interpretating Date/Time 06/14/2017 19:35:49
--- NOTE | 2017-06-14 19:37 | EKG ---
Date Performed: 06/14/2017 Time Performed: 01:10:55 PTAGE: 62 years EKG: Sinus rhythm POSSIBLE LEFT ATRIAL ENLARGEMENT MODERATE T-WAVE ABNORMALITY, CONSIDER LATERAL ISCHEMIA ABNORMAL ECG PREVIOUS TRACING : 06/13/2017 11.46 Since previous tracing, no significant change noted DOCTOR: Salome Walton Interpretating Date/Time 06/14/2017 19:35:58
== END 2017-06-14 14:15 | disposition home or self-care (01) ==
LOC: NEPE 11:26 → NEDA 13:00 → NEPGCP 14:22
PROVIDERS: ADMIT Family Medicine; ATTEND Family Medicine
DX: I11.0 Hypertensive heart disease with heart failure (principal); I50.20 Unspecified systolic (congestive) heart failure; I16.1 Hypertensive emergency; E11.65 Type 2 diabetes mellitus with hyperglycemia; K21.9 Gastro-esophageal reflux disease without esophagitis; F10.10 Alcohol abuse, uncomplicated; J40 Bronchitis, not specified as acute or chronic; I37.1 Nonrheumatic pulmonary valve insufficiency; I31.3 Pericardial effusion (noninflammatory); R06.02 Shortness of breath; R94.31 Abnormal electrocardiogram [ECG] [EKG]; R07.9 Chest pain, unspecified; Z91.19 Patient's noncompliance with other medical treatment and regimen
CPT/HCPCS: 71045; 71046; 80053; 80061; 80307; 81001; 82010; 82043; 82550; 82948; 83036; 83690; 83735; 83880; 84244; 84443; 84484; 84550; 85025; 85610; 85730; 87804; 93005; 93306; 94150; 94640; 94664; 96365; 96372; 96375; 96376; 97161; 99285; G0378; G8987; G8988; G8989; J1644; J1815; J1940; J2930; J3411